=== PATIENT | female | born 1970 | race Caucasian/White ===

== ENCOUNTER 2016-09-08 05:35 | Outpatient (CLI) | payer SELFPAY ==
[~2016-09-08] VITALS: Ht 157.5 cm; Wt 79.4 kg
[2016-09-08] MEDS ORDERED: ACET-2469 PO (13:45)
== END 2016-09-08 14:01 ==
LOC: PREOP 05:35
PROVIDERS: ATTEND Surgery
DX: Z01.818 Encounter for other preprocedural examination (principal); Z12.11 Encounter for screening for malignant neoplasm of colon

== ENCOUNTER 2016-09-13 07:26 | Day surgery (SDC) | payer BC ==
[~2016-09-13] VITALS: Ht 157.5 cm; Wt 79.4 kg
[~2016-09-13 07:26] MED LIST: ACET-2469 PO
[2016-09-13 07:35] VITALS: BP 121/81
[2016-09-13] MEDS ORDERED: NS IV 500 ML 500 ML IV PRN (07:40)
[2016-09-13] MEDS ORDERED: NALOXONE 0.4 MG/ML 1 ML (NARCAN) VIAL IVP PRN (07:45)
[2016-09-13] MEDS ORDERED: FLUMAZENIL (ROMAZICON) 0.1 MG/ML 5 ML VIAL INJ PRN (07:45)
[2016-09-13] MEDS ORDERED: fentaNYL INJECTION 100 MCG/2 ML AMP ONE ×2 (08:47→09:03)
[2016-09-13] MEDS ORDERED: MIDAZOLAM 2 MG/2 ML (VERSED) VIAL ONE ×4 (08:48→09:05)
[2016-09-13] MEDS: MIDAZOLAM 2 MG/2 ML (VERSED) VIAL IVP PRN ×4 (08:55→09:08)
--- NOTE | 2016-09-13 08:55 | Conscious Sedation/ASA ---
Conscious Sedation Pre-Proced Time Reviewed: 08:10 ASA Class: 1 Airway Mallampati Classification: (soboba appropriate class) I. II. III, IV Lungs Heart ASA score ASA 1: a normal healthy patient ASA 2: a patient with a mild systemic disease (mid diabetes, controlled hypertension, obesity ASA 3: a patient with a severe systemic disease that limits activity (angina , COPD, prior Myocardial infarction) ASA 4: a patient with an incapacitating disease that is a constant threat to life (CHF, renal failure) ASA 5: a moribund patient not expected to survive 24 hrs. (ruptured aneurysm) ASA 6: a declared brain patient whose organs are being harvested. For emergent operations, add the letter E after the classification Grade 1 Sedation Plan: Discussed options with patient/fam Note The patient is an appropriate candidate to undergo the planned procedure, sedation, and anesthesia. The patient immediately re-assessed prior to indication. VIDAL JIMENEZ MD September 13, 2016 8:55 am
[2016-09-13] MEDS: fentaNYL INJECTION 100 MCG/2 ML AMP IVP PRN ×4 (08:56→09:09)
--- NOTE | 2016-09-13 09:22 | Endoscopy Procedure Report ---
Endoscopy Report Date: September 13, 2016 Preoperative Diagnosis: screening. Family history Study Performed: Colonoscopy Procedure Instrument: Colonoscope Endo Procedure/Findings Findings 1.: Diverticulosis Recommendations: Recommendations: 1.: Colonscopy in 5 years Copy Copies To 1: BENNIE SAMUELS MD, XAVIER M MD September 13, 2016 9:22 am
--- NOTE | 2016-09-13 09:23 | Discharge Inst-Simple/Standard ---
Discharge Inst-Standard Discharge Medications New, Converted or Re-Newed RX: Other Patient Instructions/Follow Up Plan of Care/Instructions/FU: Repeat colonoscopy in 5 years Activity as Tolerated: Yes Discharge Diet: No Restrictions VIDAL JIMENEZ MD September 13, 2016 9:23 am
[2016-09-13 09:35] VITALS: BP 113/77
[2016-09-13 10:05] VITALS: BP 109/80
[2016-09-13 10:30] VITALS: BP 109/80
--- NOTE | 2016-09-13 21:54 | OPERATIVE REPORT ---
DATE OF SERVICE: 09/13/2016 PROCEDURE PERFORMED: Screening colonoscopy. INDICATIONS FOR PROCEDURE: This lady came in for screening colonoscopy. She reported a family history of colon cancer in her mother. CONSENT: Informed consent was obtained after reviewing the procedure in detail. SURGEON: Vidal Jimenez MD. DESCRIPTION OF PROCEDURE: She was placed in left lateral decubitus position and her vital signs were monitored. Conscious sedation was achieved using Versed and fentanyl. Digital rectal examination was unremarkable. The colonoscope was then introduced in the rectum and advanced to the cecum. The quality of bowel preparation was rather suboptimal. I was, however, able to suction liquid stools and examine the mucosa in its entirety. Once the cecum was reached, the colonoscope was withdrawn slowly and the mucosa examined in a systematic fashion. FINDINGS: 1. Very few, scattered sigmoid diverticula. 2. No polyps were found. She tolerated the procedure well and was taken back to the nursing area in stable condition. IMPRESSION: 1. Screening colonoscopy. 2. No polyps. 3. Positive family history. PLAN: Recommend repeating in 5 years. Job ID: [id number] DocumentID: [id number] Dictated Date: 09/13/2016 09:19:51 Director Marketing Analytics Date: 09/13/2016 14:23:51 Dictated By: VIDAL JIMENEZ MD MTDD
== END 2016-09-13 10:40 | disposition home or self-care (01) ==
LOC: ENDO 07:26
PROVIDERS: ATTEND Surgery
DX: Z12.11 Encounter for screening for malignant neoplasm of colon (principal); K57.30 Diverticulosis of large intestine without perforation or abscess without bleeding; Z80.0 Family history of malignant neoplasm of digestive organs

== ENCOUNTER → 2020-03-14 | Outpatient (CLI) | payer BC ==
[~2020-03-14] MED LIST changes: -ACET-2469 PO; +ACET-3075 PO
--- NOTE | 2020-03-17 10:31 | Diagnostic Imaging Report ---
INDICATION: Routine screening. COMPARISON: 02/19/2019. TECHNIQUE: 2D and 3D bilateral screening mammography was performed with CAD. FINDINGS: Bilateral subpectoral breast implants are noted. The implant contours appear smooth. The breast parenchyma is heterogeneously dense, limiting the sensitivity of mammography. The parenchymal pattern is stable. No mass or malignant appearing microcalcifications are seen. The axillae are unremarkable. IMPRESSION: No mammographic features suspicious for malignancy are identified. ACR BI-RADS Category 2: Benign findings. Result letter will be mailed to the patient. Note: At least 10% of breast cancer is not imaged by mammography. Dictated by: Dictated on workstation # [id number]
== END ==
LOC: RAD 09:45
DX: Z12.31 Encounter for screening mammogram for malignant neoplasm of breast (principal)
CPT/HCPCS: 77063; 77067